=== PATIENT | female | born 1995 | race Caucasian/White ===

== ENCOUNTER 2016-10-28 13:09 | Emergency (ER) | payer OTHER ==
[~2016-10-28] VITALS: Ht 170.2 cm; Wt 103.7 kg
[~2016-10-28 13:09] MED LIST: AMOX TR-K CLV1 EAC4 PO; CEFDINIR300 MG PO; DESYREL100 MG PO; FLEXERIL10 MG PO; FLUTICASONE PRO16 GM BOTH NARES; JUNEL FE 1.5-31 EACH PO; NAPROSYN500 MG PO; NORCO 5/3251 TABLET PO; PAROXETINE HCL20 MG PO; PERCOCET 5/31 TABLET PO; PHENTERMINE HCL15 MG PO; PREDNISONE10 M1 PO; PRENATAL TABLE1 EAC3 PO; SEROQUEL100 MG PO; TRAZODONE HCL50 MG PO; TYLENOL EXTRA500 MG PO; VENTOLIN HFA18 GM IH; VYVANSE50 MG PO; XANAX0.5 MG PO
[2016-10-28] MEDS ORDERED: MONTELUKAST SOD10 MG PO (13:47)
[2016-10-28] MEDS ORDERED: ZOFRAN ODT4 MG PO (14:53)
[2016-10-28 20:57] VITALS: BP 125/75
== END 2016-10-28 20:58 | disposition home or self-care (01) ==
LOC: EME 13:09 → RME 13:09
DX: O21.8 Other vomiting complicating pregnancy (principal); O26.891 Other specified pregnancy related conditions, first trimester; M54.5 Low back pain; R68.83 Chills (without fever); Z3A.08 8 weeks gestation of pregnancy
CPT/HCPCS: 76801; 84702; 99281; 99283

== ENCOUNTER 2016-11-26 21:14 | Emergency (ER) | payer OTHER ==
[~2016-11-26] VITALS: Ht 170.2 cm; Wt 102.9 kg
[~2016-11-26 21:14] MED LIST changes: +MONTELUKAST SOD10 MG PO; +ZOFRAN ODT4 MG PO
[2016-11-26 22:16] LABS: HEMATOCRIT 39.1 % (36.0-46.0); MCH 29.2 PG (29.0-34.0); MCV 83.4 FL (83-99); MEAN PLAT.VOLUME 9.4 uM^3 (9.5-12.4); PLATELET COUNT 326 K/uL (156-360); RBC DIS.WIDTH-SD 41.5 % (39-53); RED BLOOD COUNT 4.69 M/uL (3.80-5.20); WHITE BLOOD COUNT 13.6 K/uL (4.1-10.2)
[2016-11-26 22:27] LABS: CHLORIDE 106 mEq/L (99-109); POTASSIUM 3.8 mEq/L (3.7-5.4); SODIUM 137 mEq/L (136-147)
[2016-11-26 22:29] LABS: GLUCOSE 86 mg/dL (70-99)
[2016-11-26 22:30] LABS: ANION GAP 9 MEQ/L (2-14)
[2016-11-26 22:31] LABS: TOTAL BILIRUBIN 0.1 mg/dL (0.0-1.0)
[2016-11-26 22:32] LABS: ALKALINE PHOSPHATASE 76 IU/L (3-129)
[2016-11-26 22:33] LABS: GFR ESTIMATE (CALCULATED) > 59 mL/min/
[2016-11-26 22:34] LABS: UREA NITROGEN (BUN) 7 mg/dL (9-23)
[2016-11-26 23:15] LABS: QUANTITATIVE HCG 64791.9 MIU/ML
[2016-11-26 23:29] LABS: ADD MIUA? YES; BILIRUBIN NEGATIVE; BLOOD SMALL; COLOR YELLOW ((YELLOW)); GLUCOSE (STRIP) 50; KETONES NEGATIVE; LEUKOCYTES NEGATIVE; NITRITE NEGATIVE; PROTEIN (STRIP) NEGATIVE; SPECIFIC GRAVITY 1.024 (1.000-1.030); UROBILINOGEN 0.2 MG/DL (0.2-1.0)
[2016-11-27 00:44] LABS: BACTERIA 1+ /HPF; EPITHELIAL CELLS 1+ /HPF; MUCUS 2+ /LPF; RED BLOOD CELLS 0-5 /HPF (0-5); UCUL ADDED? NO; WHITE BLOOD CELLS 0-5 /HPF (0-5)
[2016-11-27 00:57] VITALS: BP 122/67
== END 2016-11-27 00:58 | disposition home or self-care (01) ==
LOC: EME 21:14
DX: O99.89 Other specified diseases and conditions complicating pregnancy, childbirth and the puerperium (principal); M54.5 Low back pain; R10.30 Lower abdominal pain, unspecified; Z3A.12 12 weeks gestation of pregnancy
CPT/HCPCS: 80053; 81003; 84702; 85027; 99281; 99284

== ENCOUNTER 2016-12-14 21:46 | Emergency (ER) | payer OTHER ==
[~2016-12-14] VITALS: Ht 170.2 cm; Wt 104.4 kg
[2016-12-15 00:16] LABS: HEMATOCRIT 41.6 % (36.0-46.0); MCH 28.8 PG (29.0-34.0); MCHC 33.4 G/DL (30.0-36.0); MCV 86.1 FL (83-99); MEAN PLAT.VOLUME 9.3 uM^3 (9.5-12.4); PLATELET COUNT 323 K/uL (156-360); RBC DIS.WIDTH-CV 14.2 % (11.8-14.6); RBC DIS.WIDTH-SD 43.9 % (39-53); RED BLOOD COUNT 4.83 M/uL (3.80-5.20)
[2016-12-15 00:24] LABS: CHLORIDE 106 mEq/L (99-109); POTASSIUM 3.5 mEq/L (3.7-5.4); SODIUM 136 mEq/L (136-147)
[2016-12-15 00:27] LABS: GLUCOSE 80 mg/dL (70-99)
[2016-12-15 00:28] LABS: ANION GAP 10 MEQ/L (2-14); TOTAL BILIRUBIN 0.2 mg/dL (0.0-1.0)
[2016-12-15 00:30] LABS: ALKALINE PHOSPHATASE 68 IU/L (3-129); GFR ESTIMATE (CALCULATED) > 59 mL/min/
[2016-12-15 00:31] LABS: UREA NITROGEN (BUN) 7 mg/dL (9-23)
[2016-12-15 00:32] LABS: DIRECT BILIRUBIN 0.1 mg/dL (0.0-0.3)
[2016-12-15 00:34] LABS: LIPASE 21 U/L (1.0-51.0)
[2016-12-15 00:43] LABS: ADD MIUA? NO; BILIRUBIN NEGATIVE; BLOOD NEGATIVE; COLOR YELLOW ((YELLOW)); GLUCOSE (STRIP) 150; KETONES 5; LEUKOCYTES NEGATIVE; NITRITE NEGATIVE; PROTEIN (STRIP) NEGATIVE; UCUL ADDED? NO; UROBILINOGEN 0.2 MG/DL (0.2-1.0)
[2016-12-15 01:03] LABS: QUANTITATIVE HCG 36507.4 MIU/ML
[2016-12-15] MEDS ORDERED: TYLENOL WITH C1 EACH PO (01:52)
[2016-12-15 02:26] VITALS: BP 131/71
== END 2016-12-15 02:27 | disposition home or self-care (01) ==
LOC: EME 21:46
PROVIDERS: Emergency Medicine
DX: O26.891 Other specified pregnancy related conditions, first trimester (principal); R51 Headache
CPT/HCPCS: 80048; 80076; 81003; 83690; 84702; 85027; 87086; 99281; 99283; J2405; J7030

== ENCOUNTER 2017-01-01 00:10 | Emergency (ER) | payer OTHER ==
[~2017-01-01] VITALS: Ht 170.2 cm; Wt 105.3 kg
[~2017-01-01 00:10] MED LIST changes: +TYLENOL WITH C1 EACH PO
[2017-01-01 01:17] LABS: HEMATOCRIT 37.2 % (36.0-46.0); MCH 29.5 PG (29.0-34.0); MCHC 34.1 G/DL (30.0-36.0); MCV 86.3 FL (83-99); MEAN PLAT.VOLUME 9.3 uM^3 (9.5-12.4); PLATELET COUNT 317 K/uL (156-360); RBC DIS.WIDTH-CV 13.7 % (11.8-14.6); RBC DIS.WIDTH-SD 43.1 % (39-53); RED BLOOD COUNT 4.31 M/uL (3.80-5.20); WHITE BLOOD COUNT 15.2 K/uL (4.1-10.2)
[2017-01-01 01:23] LABS: ADD MIUA? YES; BILIRUBIN NEGATIVE; BLOOD MODERATE; COLOR YELLOW ((YELLOW)); GLUCOSE (STRIP) NEGATIVE; KETONES 5; LEUKOCYTES NEGATIVE; NITRITE NEGATIVE; PROTEIN (STRIP) NEGATIVE; SPECIFIC GRAVITY 1.013 (1.000-1.030); UROBILINOGEN 0.2 MG/DL (0.2-1.0)
[2017-01-01 01:27] LABS: CHLORIDE 106 mEq/L (99-109); POTASSIUM 3.5 mEq/L (3.7-5.4); SODIUM 137 mEq/L (136-147)
[2017-01-01 01:28] LABS: BACTERIA RARE /HPF; EPITHELIAL CELLS 1+ /HPF; HYALINE CASTS 0-5 /LPF; MUCUS TRACE /LPF; RED BLOOD CELLS 15-20 /HPF (0-5); UCUL ADDED? NO; WHITE BLOOD CELLS 0-5 /HPF (0-5)
[2017-01-01 01:30] LABS: GLUCOSE 85 mg/dL (70-99)
[2017-01-01 01:31] LABS: ANION GAP 10 MEQ/L (2-14); TOTAL BILIRUBIN 0.2 mg/dL (0.0-1.0)
[2017-01-01 01:33] LABS: ALKALINE PHOSPHATASE 56 IU/L (3-129); GFR ESTIMATE (CALCULATED) > 59 mL/min/
[2017-01-01 01:34] LABS: UREA NITROGEN (BUN) 8 mg/dL (9-23)
[2017-01-01 01:37] LABS: LIPASE 10 U/L (1.0-51.0)
[2017-01-01 02:01] LABS: QUANTITATIVE HCG 23833.6 MIU/ML
[2017-01-01 04:50] VITALS: BP 142/72
== END 2017-01-01 04:50 | disposition home or self-care (01) ==
LOC: EME 00:10
PROVIDERS: Physician Assistant
DX: R10.30 Lower abdominal pain, unspecified (principal); R10.9 Unspecified abdominal pain; Z91.048 Other nonmedicinal substance allergy status; R93.8 Abnormal findings on diagnostic imaging of other specified body structures
CPT/HCPCS: 76705; 76770; 76805; 80053; 81003; 83690; 84702; 85027; 99281; 99284

== ENCOUNTER 2017-01-23 15:47 | Emergency (ER) | payer OTHER ==
[~2017-01-23] VITALS: Ht 170.2 cm; Wt 101.8 kg
[2017-01-23] MEDS ORDERED: FOLIC ACID1 MG PO (16:17)
[2017-01-23] MEDS ORDERED: FEM-CAL CITRAT1 EACH PO (16:18)
[2017-01-23 17:02] LABS: HEMATOCRIT 36.2 % (36.0-46.0); MCH 30.1 PG (29.0-34.0); MCHC 34.8 G/DL (30.0-36.0); MCV 86.4 FL (83-99); MEAN PLAT.VOLUME 9.2 uM^3 (9.5-12.4); PLATELET COUNT 292 K/uL (156-360); RBC DIS.WIDTH-CV 14.1 % (11.8-14.6); RBC DIS.WIDTH-SD 43.5 % (39-53); RED BLOOD COUNT 4.19 M/uL (3.80-5.20); WHITE BLOOD COUNT 11.1 K/uL (4.1-10.2)
[2017-01-23 17:13] LABS: CHLORIDE 106 mEq/L (99-109); POTASSIUM 3.7 mEq/L (3.7-5.4); SODIUM 135 mEq/L (136-147)
[2017-01-23 17:15] LABS: GLUCOSE 77 mg/dL (70-99)
[2017-01-23 17:16] LABS: ANION GAP 10 MEQ/L (2-14)
[2017-01-23 17:17] LABS: TOTAL BILIRUBIN 0.4 mg/dL (0.0-1.0)
[2017-01-23 17:19] LABS: ALKALINE PHOSPHATASE 62 IU/L (3-129); GFR ESTIMATE (CALCULATED) > 59 mL/min/
[2017-01-23 17:20] LABS: UREA NITROGEN (BUN) 3 mg/dL (9-23)
[2017-01-23 17:49] LABS: QUANTITATIVE HCG 20677.6 MIU/ML
[2017-01-23 17:55] LABS: ADD MIUA? YES; BILIRUBIN NEGATIVE; BLOOD NEGATIVE; COLOR YELLOW ((YELLOW)); GLUCOSE (STRIP) NEGATIVE; KETONES 80; LEUKOCYTES NEGATIVE; NITRITE NEGATIVE; PROTEIN (STRIP) NEGATIVE; SPECIFIC GRAVITY 1.012 (1.000-1.030); UROBILINOGEN 0.2 MG/DL (0.2-1.0)
[2017-01-23 18:24] LABS: BACTERIA RARE /HPF; EPITHELIAL CELLS RARE /HPF; MUCUS TRACE /LPF; RED BLOOD CELLS NONE SEEN /HPF (0-5); UCUL ADDED? NO; WHITE BLOOD CELLS NONE SEEN /HPF (0-5)
[2017-01-23 18:55] LABS: TROP-I INTERPRETATION NEGATIVE; TROPONIN-I < 0.01 ng/mL (0.0-0.30)
[2017-01-23] MEDS ORDERED: DICLEGIS DR 101 EACH PO (21:53)
[2017-01-23 22:26] VITALS: BP 128/70
== END 2017-01-23 22:34 | disposition home or self-care (01) ==
LOC: EME 15:47
PROVIDERS: Physician Assistant
DX: O21.2 Late vomiting of pregnancy (principal); Z3A.20 20 weeks gestation of pregnancy; O26.892 Other specified pregnancy related conditions, second trimester; R42 Dizziness and giddiness; E86.0 Dehydration
CPT/HCPCS: 71020; 71275; 80053; 81003; 84484; 84702; 85027; 85379; 93005; 99281; 99284; J2405; J7030

== ENCOUNTER 2017-03-04 21:54 | Outpatient (CLI) | payer OTHER ==
[~2017-03-04] VITALS: Ht 170.2 cm; Wt 104.0 kg
[~2017-03-04 21:54] MED LIST changes: +DICLEGIS DR 101 EACH PO; +FEM-CAL CITRAT1 EACH PO; +FOLIC ACID1 MG PO
[2017-03-04] MEDS ORDERED: TYLENOL EXTRA500 MG PO (22:18)
[2017-03-04 22:21] VITALS: BP 127/71
== END 2017-03-04 23:35 | disposition home or self-care (01) ==
LOC: LDRP-OP 21:54 → 2WEST 21:57
DX: O36.8120 Decreased fetal movements, second trimester, not applicable or unspecified (principal); O26.899 Other specified pregnancy related conditions, unspecified trimester; Z3A.25 25 weeks gestation of pregnancy; R10.9 Unspecified abdominal pain
CPT/HCPCS: 59025; G0378

== ENCOUNTER 2017-03-11 23:23 | Emergency (ER) | payer OTHER ==
[~2017-03-11] VITALS: Ht 170.2 cm; Wt 104.1 kg
[2017-03-12 00:56] LABS: HEMATOCRIT 35.2 % (36.0-46.0); MCH 31.1 PG (29.0-34.0); MCHC 34.7 G/DL (30.0-36.0); MCV 89.8 FL (83-99); MEAN PLAT.VOLUME 9.4 uM^3 (9.5-12.4); PLATELET COUNT 278 K/uL (156-360); RBC DIS.WIDTH-CV 13.9 % (11.8-14.6); RBC DIS.WIDTH-SD 44.9 % (39-53); RED BLOOD COUNT 3.92 M/uL (3.80-5.20)
[2017-03-12 01:08] LABS: CHLORIDE 104 mEq/L (99-109); POTASSIUM 3.5 mEq/L (3.7-5.4); SODIUM 133 mEq/L (136-147)
[2017-03-12 01:10] LABS: GLUCOSE 89 mg/dL (70-99); PROTHROMBIN TIME 10.1 (9.2-11.2); PTT 28.1 (25-32)
[2017-03-12 01:11] LABS: ANION GAP 8 MEQ/L (2-14)
[2017-03-12 01:14] LABS: GFR ESTIMATE (CALCULATED) > 59 mL/min/
[2017-03-12 01:15] LABS: UREA NITROGEN (BUN) 4 mg/dL (9-23)
[2017-03-12 01:18] LABS: TROP-I INTERPRETATION NEGATIVE; TROPONIN-I < 0.01 ng/mL (0.0-0.30)
[2017-03-12 01:40] LABS: QUANTITATIVE HCG 17020.1 MIU/ML
[2017-03-12 03:19] VITALS: BP 138/62
== END 2017-03-12 03:21 | disposition home or self-care (01) ==
LOC: EME 23:23
PROVIDERS: Emergency Medicine
DX: O26.892 Other specified pregnancy related conditions, second trimester (principal); R07.9 Chest pain, unspecified; R20.0 Anesthesia of skin; R20.2 Paresthesia of skin; O99.342 Other mental disorders complicating pregnancy, second trimester; F32.9 Major depressive disorder, single episode, unspecified; F41.9 Anxiety disorder, unspecified; Z3A.27 27 weeks gestation of pregnancy; Z83.2 Family history of diseases of the blood and blood-forming organs and certain disorders involving the immune mechanism
CPT/HCPCS: 71010; 80048; 84484; 84702; 85027; 85610; 85730; 93005; 93970; 99281; 99284

== ENCOUNTER → 2017-03-24 | Outpatient (CLI) | payer OTHER ==
[~2017-03-24] VITALS: Ht 170.2 cm; Wt 105.1 kg
[2017-03-24 11:06] VITALS: BP 124/70
== END | disposition home or self-care (01) ==
LOC: IVINF 11:00
DX: Z31.82 Encounter for Rh incompatibility status (principal); Z3A.28 28 weeks gestation of pregnancy; Z67.41 Type O blood, Rh negative
CPT/HCPCS: 96372; J2790

== ENCOUNTER 2017-04-18 21:25 | Outpatient (CLI) | payer OTHER ==
[~2017-04-18] VITALS: Ht 170.2 cm; Wt 106.5 kg
[2017-04-18 21:40] VITALS: BP 126/87
[2017-04-18 22:15] VITALS: BP 145/80
[2017-04-18 22:44] LABS: ADD MIUA? NO; BILIRUBIN NEGATIVE; BLOOD NEGATIVE; COLOR YELLOW ((YELLOW)); GLUCOSE (STRIP) NEGATIVE; KETONES NEGATIVE; LEUKOCYTES NEGATIVE; NITRITE NEGATIVE; PROTEIN (STRIP) NEGATIVE; SPECIFIC GRAVITY 1.014 (1.000-1.030); UCUL ADDED? NO; UROBILINOGEN 0.2 MG/DL (0.2-1.0)
[2017-04-18 23:00] LABS: EOSINOPHIL (%) 0.5 % (0-5); EOSINOPHIL COUNT 0.1 K/uL (0-0.3); HEMATOCRIT 34.5 % (36.0-46.0); IMMATURE GRANULOCYTE (%) 1.1 % (0.0-0.7); IMMATURE GRANULOCYTE COUNT 0.2 K/uL; INSTRUMENT ABS NEUTROPHIL CT 11.5 K/uL; LYMPHOCYTE COUNT 1.9 K/uL (1.0-2.8); MCH 30.1 PG (29.0-34.0); MCHC 33.6 G/DL (30.0-36.0); MCV 89.6 FL (83-99); MEAN PLAT.VOLUME 9.8 uM^3 (9.5-12.4); MONOCYTE (%) 7.9 % (3-12); MONOCYTE COUNT 1.2 K/uL (0-0.8); NEUTROPHIL (%) 77.7 % (45-76); NEUTROPHIL COUNT 11.5 K/uL (1.8-6.4); PLATELET COUNT 297 K/uL (156-360); RBC DIS.WIDTH-CV 13.6 % (11.8-14.6); RBC DIS.WIDTH-SD 44.4 % (39-53); RED BLOOD COUNT 3.85 M/uL (3.80-5.20); WHITE BLOOD COUNT 14.8 K/uL (4.1-10.2)
[2017-04-18 23:08] LABS: CHLORIDE 106 mEq/L (99-109); POTASSIUM 4.3 mEq/L (3.7-5.4); SODIUM 140 mEq/L (136-147)
[2017-04-18 23:10] LABS: GLUCOSE 84 mg/dL (70-99)
[2017-04-18 23:12] LABS: ANION GAP 12 MEQ/L (2-14); TOTAL BILIRUBIN 0.2 mg/dL (0.0-1.0)
[2017-04-18 23:14] LABS: ALKALINE PHOSPHATASE 115 IU/L (3-129); GFR ESTIMATE (CALCULATED) > 59 mL/min/
[2017-04-18 23:15] LABS: UREA NITROGEN (BUN) 8 mg/dL (9-23)
[2017-04-19 00:37] VITALS: BP 137/65
== END 2017-04-19 02:10 | disposition home or self-care (01) ==
LOC: LDRP-OP 21:25 → 2WEST 21:26 → LDRP-OP 07-11 00:19
PROVIDERS: Advanced Practice Midwife
DX: O26.893 Other specified pregnancy related conditions, third trimester (principal); Z3A.32 32 weeks gestation of pregnancy; M54.9 Dorsalgia, unspecified; R10.9 Unspecified abdominal pain; R39.15 Urgency of urination; R11.0 Nausea
CPT/HCPCS: 59025; 76770; 80053; 81003; 85025; G0378

== ENCOUNTER 2017-06-06 13:31 | Outpatient (CLI) | payer OTHER ==
[~2017-06-06] VITALS: Ht 170.2 cm; Wt 108.0 kg
[2017-06-06 13:42] VITALS: BP 153/73
[2017-06-06 13:48] VITALS: BP 146/70
[2017-06-06 14:10] VITALS: BP 135/67
[2017-06-06 15:25] VITALS: BP 140/74
[2017-06-07] MEDS ORDERED: MOTRIN800 MG PO (21:02)
== END 2017-06-06 16:11 | disposition home or self-care (01) ==
LOC: LDRP-OP 13:31 → 2WEST 13:32 → LDRP-OP 07-11 02:21
DX: O26.893 Other specified pregnancy related conditions, third trimester (principal); M54.9 Dorsalgia, unspecified; Z3A.39 39 weeks gestation of pregnancy
CPT/HCPCS: 59025; G0378

== ENCOUNTER 2017-06-07 05:41 | Inpatient (IN) | payer OTHER ==
[~2017-06-07] VITALS: Ht 170.2 cm; Wt 108.2 kg
[2017-06-07] VITALS (23 sets, daily range): BP systolic 113–156; BP diastolic 53–88
[2017-06-07 07:12] LABS: EOSINOPHIL (%) 0.5 % (0-5); EOSINOPHIL COUNT 0.1 K/uL (0-0.3); HEMATOCRIT 35.7 % (36.0-46.0); IMMATURE GRANULOCYTE COUNT 0.2 K/uL; LYMPHOCYTE COUNT 2.2 K/uL (1.0-2.8); MCHC 33.9 G/DL (30.0-36.0); MCV 88.6 FL (83-99); MEAN PLAT.VOLUME 10.6 uM^3 (9.5-12.4); MONOCYTE (%) 6.2 % (3-12); PLATELET COUNT 244 K/uL (156-360); RBC DIS.WIDTH-CV 14.5 % (11.8-14.6); RBC DIS.WIDTH-SD 46.2 % (39-53); RED BLOOD COUNT 4.03 M/uL (3.80-5.20); WHITE BLOOD COUNT 15.4 K/uL (4.1-10.2)
[2017-06-07] MEDS ORDERED: MOTRIN800 MG PO (21:02)
[2017-06-08] VITALS (10 sets, daily range): BP systolic 100–130; BP diastolic 55–73
[2017-06-09 08:07] VITALS: BP 119/57
[2017-06-09 15:13] VITALS: BP 130/61
== END 2017-06-09 17:00 | disposition home or self-care (01) | DRG 774 ==
LOC: LDRP-OP 05:41 → 2WEST 05:42 → LDRP-OP 07-11 21:17
PROVIDERS: Nurse Practitioner
PROC: 0HQ9XZZ Repair Perineum Skin, External Approach (ICD-10-PCS; principal; 2017-06-07)
PROC: 10E0XZZ Delivery of Products of Conception, External Approach (ICD-10-PCS; principal; 2017-06-07)
PROC: 10907ZC Drainage of Amniotic Fluid, Therapeutic from Products of Conception, Via Natural or Artificial Opening (ICD-10-PCS; 2017-06-07)
PROC: 00HU33Z Insertion of Infusion Device into Spinal Canal, Percutaneous Approach (ICD-10-PCS; 2017-06-07)
PROC: 3E0S3CZ (ICD-10-PCS; 2017-06-07)
DX: O70.0 First degree perineal laceration during delivery (principal); O63.0 Prolonged first stage (of labor); O69.81X0 Labor and delivery complicated by cord around neck, without compression, not applicable or unspecified; O26.893 Other specified pregnancy related conditions, third trimester; O72.1 Other immediate postpartum hemorrhage; O99.214 Obesity complicating childbirth; E66.9 Obesity, unspecified; Z68.35 Body mass index [BMI] 35.0-35.9, adult; Z67.41 Type O blood, Rh negative; Z3A.39 39 weeks gestation of pregnancy; Z37.0 Single live birth
CPT/HCPCS: 59025; 83030; 85025; 86850; 86900; 86901; C1755; G0378; J0595; J2210; J2405; J2790; J3010; J7120